=== PATIENT | male | born 1945 | race Caucasian/White ===

== ENCOUNTER 2016-06-18 16:33 | Inpatient (IN) | payer MEDICARE, BC ==
[~2016-06-18] VITALS: Ht 170.2 cm; Wt 83.5 kg
[~2016-06-18 16:33] MED LIST: FLUT1DIS29 IH; FURO-145 PO; HYDR-548 PO; MORP15TA71 PO; POTA20TA74 PO; RIVA10TA PO; ROFL500T PO; TIOT18CA3 IH
--- NOTE | 2016-06-18 16:55 | NUR ---
AT BEDSIDE FOR EVAL
[2016-06-18] MEDS ORDERED: BUSP30TA2 PO (17:02)
[2016-06-18] MEDS ORDERED: IPRA0.2S9 IH (17:02)
[2016-06-18] MEDS ORDERED: ALBU1.257 IH (17:02)
[2016-06-18] MEDS ORDERED: OXYC-164 PO (17:02)
[2016-06-18] MEDS ORDERED: LORA2TAB PO (17:02)
[2016-06-18] MEDS ORDERED: ASPI-991 PO (17:02)
[2016-06-18] MEDS ORDERED: MELA5TAB PO (17:02)
[2016-06-18] MEDS ORDERED: QUET400T PO (17:02)
[2016-06-18] MEDS ORDERED: TRAZ-144 PO (17:02)
[2016-06-18] MEDS ORDERED: OMEG500C PO (17:02)
[2016-06-18] MEDS ORDERED: ATOR40TA PO (17:02)
[2016-06-18] MEDS ORDERED: DILT120C2 PO (17:02)
--- NOTE | 2016-06-18 17:04 | NUR ---
BLOOD DRAW AT BEDSIDE COLLECTED BLOOD SAMPLE.
[2016-06-18] MEDS ORDERED: predniSONE 20 MG TABLET ONE (17:27)
[2016-06-18 17:28] LABS: CALCIUM, SERUM 8.8 mg/dL (8.5-10.1); CARBON DIOXIDE 38 mmol/L (21-32); CHLORIDE 104 mmol/L (98-107); CREATININE 0.7 mg/dL (0.6-1.3); GLUCOSE 128 mg/dL (74-106); POTASSIUM 4.2 mmol/L (3.5-5.1); SODIUM SERUM 141 mmol/L (136-145); UREA NITROGEN, BLOOD 6 mg/dL (7-18)
[2016-06-18] MEDS ORDERED: ALBUTEROL FS 2.5 MG/3 ML VIAL.NEB ONE (17:29)
[2016-06-18] MEDS ORDERED: IPRATROPIUM NEB FS 0.5 MG/2.5 ML AMPUL.NEB ONE (17:29)
[2016-06-18] MEDS ORDERED: predniSONE 20 MG TABLET PO ONE (17:30)
[2016-06-18] MEDS ORDERED: IPRATROPIUM NEB FS 0.5 MG/2.5 ML AMPUL.NEB NEB ONE (17:30)
[2016-06-18] MEDS ORDERED: ALBUTEROL FS 2.5 MG/3 ML VIAL.NEB NEB ONE (17:30)
--- NOTE | 2016-06-18 17:32 | NUR ---
RT AT BEDSIDE FOR BREATHING TREATMENT
[2016-06-18 17:33] LABS: ACETAMINOPHEN 3 ug/ml (10-30); ALANINE AMINOTRANSFERASE 12 U/L (12-78); ALCOHOL, BLOOD < 3 mg/dL (0-0); ALKALINE PHOSPHATASE 72 U/L (46-116); ASPARTATE AMINOTRANSFERASE 14 U/L (15-37); BILIRUBIN,DIRECT 0.1 mg/dL (0.0-0.2); BILIRUBIN,TOTAL 0.4 mg/dL (0.2-1.0); TOTAL PROTEIN, SERUM 6.4 g/dL (6.4-8.2)
[2016-06-18 17:34] LABS: SALICYLATE 2.7 mg/dL (2.8-20.0)
--- NOTE | 2016-06-18 17:50 | NUR ---
CALLED [facility] FOR PSYCH EVAL,ETA 1 HOUR
[2016-06-18 17:57] LABS: BASOPHILS % (AUTO) 0.4 % (0.0-2.0); EOSINOPHILS # (AUTO) 0.1 /CMM (0.0-0.7); EOSINOPHILS % (AUTO) 0.9 % (0.0-6.0); HEMATOCRIT 43 % (39-51); HEMOGLOBIN 13.8 g/dL (13.5-17.5); LYMPHOCYTES # (AUTO) 2.8 /CMM (0.8-4.8); LYMPHOCYTES % (AUTO) 34.3 % (20.0-44.0); MEAN CORPUSCULAR HEMOGLOBIN 32 PG (26.0-33.0); MEAN CORPUSCULAR HGB CONC 32 g/dl (31.0-36.0); MEAN CORPUSCULAR VOLUME 98 fL (80-96); MONOCYTES # (AUTO) 0.6 /CMM (0.1-1.30); MONOCYTES % (AUTO) 7.7 % (2.0-12.0); NEUTROPHILS # (AUTO) 4.6 /CMM (1.8-8.9); NEUTROPHILS % (AUTO) 56.7 % (43.0-81.0); PLATELET COUNT (AUTO) 206 /CMM (150-450); RED BLOOD CELL COUNT(AUTO) 4.33 MIL/uL (4.5-6.0); WHITE BLOOD COUNT (AUTO) 8.1 K/uL (4.3-11.0)
[2016-06-18 17:59] LABS: APPEARANCE,URINE CLEAR (CLEAR); BILIRUBIN,URINE NEGATIVE (NEGATIVE); BLOOD, URINE NEGATIVE Ery/uL (NEGATIVE); COLOR,URINE YELLOW (YELLOW); KETONES,URINE NEGATIVE (NEGATIVE); LEUKOCYTE ESTERASE ,URINE NEGATIVE (NEGATIVE); NITRITE, URINE NEGATIVE (NEGATIVE); PROTEIN,URINE NEGATIVE (NEGATIVE); UGLUCOSE NEGATIVE (NEGATIVE); UROBILINOGEN,URINE 0.2 EU/dL (0.2)
[2016-06-18 18:15] LABS: CANNABINOID, URINE NEGATIVE (NEGATIVE); PHENCYCLIDINE SCREEN,URINE NEGATIVE (NEGATIVE)
[2016-06-18] MEDS ORDERED: BUPR150T10 PO (18:40)
--- NOTE | 2016-06-18 19:08 | NUR ---
CALLED REG TO SEE WHERE SHE IS AT, SAID SHE IS STUCK IN TRAFFIC AND SHE WILL BE HERE SOON
--- NOTE | 2016-06-18 19:08 | NUR ---
RECEIVED REPORT FROM SANDY OLMSTEAD FOR CONTINUE OF CARE.
--- NOTE | 2016-06-18 19:40 | NUR ---
CALLED NURSING SUP. FOR GPS BED, IT WILL BE 211-A
--- NOTE | 2016-06-18 19:48 | NUR ---
PT PLACED ON 5150 HOLD PER REG.
--- NOTE | 2016-06-18 20:17 | NUR ---
REPORT GIVEN TO SANDY ALEJANDRE FOR [facility].
--- NOTE | 2016-06-18 20:38 | NUR ---
PT TRASNFERED VIA WC TO GPS
[2016-06-18 21:00] VITALS: BP 141/80
--- NOTE | 2016-06-18 21:00 | NUR ---
GPS ADMISSION NOTE, RECEIVED PATIENT FROM [facility]. PATIENT ARRIVED ON THIS UNIT A VIA STRETCHER 2 EMT ESCORTS. PATIENT ADMITTED ON A 5150 HOLD FOR DTS. PER HOLD PATIENT IS ALERT AND ORIENTED X 3 AND STATES THAT HE IS HAVING SUICIDAL IDEATIONS WITH A PLAN OF SELF HARM. PATIENT IS ANXIOUS, HAS DIFFICULTY SLEEPING, UNABLE TO CONTACT FOR SAFETY, AND PATIENT DOES NOT FEEL SAFE. PATIENT THE 5150 WAS REVIEWED AND THE DOCUMENTATION IN THE 5150 HOLD APPEARS TO REFLECT THE PRESENTATION OF THE PATIENT. UPON FACE TO FACE ASSESSMENT PATIENT IS CURRENTLY IN GERIATRIC CHAIR AWAKE, HAS A COMPLAINT OF LEFT ELBOW PAIN AT 3 OUT OF 10 ON THE PAIN SCALE. PATIENT IS BEING TREATED WITH ORAL PAIN MEDICATION FOR THIS PAIN. PATIENT IS DISPLAYING NO S/S OF APPARENT DISTRESS. PATIENT BREATHING IS UNLABORED WITH EQUAL RISE AND FALL OF THE CHEST. PATIENT IS ALERT AND ORIENTATED X 3 ON ROOM AIR. PATIENT HAS NO NEEDS AT THIS TIME. PATIENT IS NOTED TO BEING ANXIOUS, DISHEVELED, DISORGANIZED, UNCOOPERATIVE, COMBATIVE, WANTS TO LEAVE THE UNIT, AND NEEDS REDIRECTION. PATIENT DENIES SUICIDE IDEATIONS AND HOMICIDAL IDEATIONS AT THIS TIME. PATIENT IS UNDER THE PSYCHIATRIC CARE OF DR MA AND THE MEDICAL CARE OF DR YULI SAVAGE. PATIENT BELONGINGS WERE INVENTORIED AND CHECKED FOR CONTRABAND. ALL CONTRABAND REMOVED AND STORED IN PATIENT HALLWAY LOCKER. PATIENT ADVANCED DIRECTIVES PREFERENCE, IMMUNIZATIONS QUESTIONER, NECESSARY PAPERWORK, AND SKIN ASSESSMENT COMPLETED. PATIENT ORIENTATED TO ROOM, FLOOR, AND STAFF WITH ALL QUESTIONS ANSWERED. PATIENT EDUCATED ON THE USE OF THE CALL VICTOR. PATIENT BED SIDE RAILS ARE UP X 2 FOR SAFETY. PATIENT BED IS LOCKED, LOW AND I WILL CONTINUE TO MONITOR THIS PATIENT Q 15 MIN WITH THE HELP OF STAFF TO MAINTAIN SAFETY.
[2016-06-18 21:20] VITALS: BP 141/80
[2016-06-18] MEDS ORDERED: MAGNESIUM HYDROXIDE 30 ML UDC PO PRN (21:30)
[2016-06-18] MEDS ORDERED: ACETAMINOPHEN 325 MG TABLET PO PRN (21:30)
[2016-06-18] MEDS ORDERED: MAG HYDROX/AL HYDROX/SIMETH 30 ML UDC PO PRN (21:30)
--- NOTE | 2016-06-18 21:30 | NUR ---
GPS RN NOTE, PATIENT IN ACTIVITY ROOM IN GERATIC CHAIR. DARIN SEN CALLED OUT FOR HELP. I RAN TO THE ACTIVITY ROOM AND WITNESSED THE PATIENT WITH A CONCEALED PACKAGE LINER STARTING THE CHUCKS PADS ON FIRE THAT HE SITTING ON WHILE IN THE GERIATRIC CHAIR. BOTH FRANCY AND I RAN TO THE PATIENT AND PUT OUT THE FLAMES WITH WATER. PATIENT THEN REFUSED TO GIVE US THE PACKAGE LINER. PATIENT HELD THE PACKAGE LINER IN LEFT HAND AND NEEDED ASSISTANCE TO TAKE IT OUT OF HIS HAND. PATIENT AGGRESSIVELY FOUGHT TO NOT HAVE THE PACKAGE LINER TAKEN AWAY FROM HIM AND MANAGED TO INJURY HIS ALREADY SWOLLEN ELBOW. PACKAGE LINER TAKEN AWAY FROM FROM PATIENT. BUT NOW HAS A COMPLAINT OF 6 OUT 10 PAIN ON HIS LEFT ELBOW. PATIENT RESEARCHED ALL OVER HIS BODY FOR CONTRABAND. WILL CALL [facility] TO GET A X-RAY OF LEFT ELBOW. MAT TESTER NURSE AND FAMILY NOTIFIED OF THE OCCURRENCE. WILL CONTINUE TO MONITOR THIS PATIENT.
--- NOTE | 2016-06-18 22:15 | NUR ---
GPS RN NOTE, PATIENT HAS COMPLAINT OF 6 OUT 10 PAIN ON HIS LEFT ELBOW. PATIENT'S LEFT ELBOW HAS POSITIVE EDEMA + 2. PAGED [facility] AND INFORMED DR BOB BALTAZAR OF MY FINDINGS. DR ROJAS ORDERED X-RAY OF LEFT ELBOW COMPLETE AND X-RAY OF LEFT FOREARM COMPLETE STAT. ALL ORDERS NOTED AND CARRIED OUT WILL CONTINUE TO MONITOR THIS PATIENT.
[2016-06-18] MEDS ORDERED: ALBUTEROL HALF STRENGTH 1.25 MG/3 ML VIAL.NEB IH PRN (22:30)
--- NOTE | 2016-06-18 23:35 | NUR ---
GPS RN NOTE, PATIENT X-RAY RESULTS ARE FOLLOWS MILDLY DISTRACTED FRACTURE OF THE OLECRANON WITH OVERLYING SOFT TISSUE SWELLING. PAGED [facility] AND INFORMED DR BOB BALTAZAR OF MY FINDINGS. DR ROJAS ORDERED NORCO 5-325 MG 1 TAB PO Q4HR PRN, AN ORTHO CONSULT, AND SAID HE WOULD ORDER A SLING FROM [facility] IN THE AM. ALL ORDERS NOTED AND CARRIED OUT WILL CONTINUE TO MONITOR THIS PATIENT.
[2016-06-19] MEDS ORDERED: HYDROCODONE/APAP 5/325MG 1 EACH TABLET ONE (00:20)
[2016-06-19] MEDS: HYDROCODONE/APAP 5/325MG 1 EACH TABLET PO PRN ×2 (00:29→20:34)
--- NOTE | 2016-06-19 00:29 | NUR ---
GPS RN NOTE, PATIENT HAS A COMPLAINT OF LEFT ELBOW PAIN AT 6 OUT 10 ON THE PAIN SCALE AND WOULD LIKE MEDICATION AT THIS TIME. PATIENT VITAL SIGNS ARE STABLE GAVE NORCO 5-325 1 TAB PO Q4HR PRN ORDERED. WILL REASSESS PAIN AND I WILL CONTINUE TO MONITOR THIS PATIENT.
[2016-06-19] MEDS: TEMAZEPAM 7.5 MG CAPSULE PO PRN ×2 (01:53→20:37)
--- NOTE | 2016-06-19 01:53 | NUR ---
GPS RN NOTE, PATIENT HAS A COMPLAINT OF NOT BEING ABLE TO SLEEP AND WOULD LIKE A SLEEPING AID AT THIS TIME. PATIENT VITAL SIGNS ARE STABLE. GAVE RESTORIL 7.5MG PO HS ORDERED. WILL REASSESS FOR INSOMNIA AND I WILL CONTINUE TO MONITOR THIS PATIENT.
--- NOTE | 2016-06-19 06:37 | NUR ---
GPS RN NOTE, SPOKE WITH CASPER HANNA PATIENT NEXT OF KIN HOW STATED THAT, " CHRISTIANE HAS FALLEN MULTIPLE TIMES IN THE PAST DUE TO MIXING OF ETOH AND MEDICATION". CASPER HANNA WAS NOT SURPRISED PATIENT THAT THE PATIENT HAS FRACTURE ON LEFT ELBOW AND SKIN TEAR ON HIS RIGHT FOREARM. MADE PATIENT NEXT OF KIN AWARE OF OUR VISITING HOURS AND RULES OF THE FLOOR. WILL ENDORSE TO AM SHIFT NURSE AND I WILL CONTINUE TO MONITOR THIS PATIENT.
--- NOTE | 2016-06-19 07:30 | NUR ---
RN-CO: Obtained a 1:[address] Nielsen. Patient is AWOL risk, needs constant redirection and keep on trying to open doors. gave the order noted.
[2016-06-19] MEDS ORDERED: ALBUTEROL FS 2.5 MG/3 ML VIAL.NEB NEB PRN (07:35)
[2016-06-19] MEDS: LORAZEPAM 0.5 MG TABLET PO PRN ×3 (07:54→22:14)
[2016-06-19 08:00] VITALS: BP 137/84
[2016-06-19] MEDS: IPRATROPIUM NEB FS 0.5 MG/2.5 ML AMPUL.NEB IH SCH ×3 (08:16→16:46)
[2016-06-19] MEDS: DILTIAZEM HCL CD 120 MG PO SCH (09:00)
[2016-06-19] MEDS ORDERED: TIOTROPIUM BROMIDE 6 CAP/BOX CAP.W.DEV IH SCH (09:00)
[2016-06-19] MEDS ORDERED: Medication Not On Formulary EA (Roflumilast (Daliresp) 500 MCG) PO SCH (09:00)
[2016-06-19] MEDS: ASPIRIN EC 81 MG TABLET.DR PO SCH (09:00)
--- NOTE | 2016-06-19 10:00 | NUR ---
gps athletic training internship: notes pt requesting ativan and insisting to have it randell, pt aware he got one this morning (2 hours ago), but doesn't remember taking it. sitter remains with him. pt behavior escalating and with threatening remarks. cn aware. paged dr. gould. 1:1 intervention provided prn. will continue to monitor.
--- NOTE | 2016-06-19 10:10 | NUR ---
RN-CO: Patient is constantly in the nursing station, talking loud and in a threatening manner. Non redirectable, insisting he needs Ativan IM CHANG. Patient is belligerent and became impatient. Dr Nielsen was paged.
--- NOTE | 2016-06-19 10:12 | NUR ---
WOUND CARE CONSULT: PATIENT SEEN AND LIMITED SKIN ASSESSMENT DONE. PATIENT REFUSED THE ASSESSMENT OF THE BACK, SACRUM, LEGS AND FEET. PATIENT IS ALERT, CONTINENT, AMBULATORY. ACCORDING TO NURSING STAFF, PATIENT IS UNPREDICTABLE, BECOMES ANGRY AND COMBATIVE. SEE TODAY'S SKIN ASSESSMENT IN PCS ALONG WITH RECOMMENDATIONS DISCUSSED WITH NURSING STAFF. MD IN AGREEMENT WITH PLAN OF CARE. Addendum: 06/19/16 at 1016 by BEBETO DIXON WNDNU Amended: Links added.
[2016-06-19] MEDS ORDERED: LORAZEPAM INJ 2 MG/ML VIAL IM STA (10:14)
[2016-06-19] MEDS ORDERED: OLANZAPINE 10 MG VIAL IM STA (10:14)
--- NOTE | 2016-06-19 10:17 | NUR ---
RN-CO: DR MA CALLED AND ORDERED ZYPREXA 5 MG IM AND ATIVAN 1 MG IM STAT NOTED AND CARRIED OUT.
[2016-06-19] MEDS ORDERED: Z GUARD REMEDY 2 OZ OINT TP PRN (10:30)
--- NOTE | 2016-06-19 10:35 | NUR ---
gps stereotyper helper: ortho f/u seen by remedios and applied splint to left elbow/arm, ann. well. received verbal order to get consent of left olecranon open reduction internal fixation, but pt refusing to give consent. pt remains anxious, hyperverbal, and demanding to go to [place] for his surgery. pt is still on hold. pt not capable of signing due to cognitive impairment. will notify son. will continue to monitor.
--- NOTE | 2016-06-19 10:55 | NUR ---
gps plasma center technician: notes fantasma (son) notified and made aware re: surgery tonight or on wednesday re: left elbow fx and son initially consented over the phone and spoke to another nurse (cn) to verify consents on procedure and anesthesia, but changed his mind and he won't consent after talking to his father, pt still refusing surgery. per son he will fly tonight here from [place]. cn aware.
--- NOTE | 2016-06-19 11:00 | NUR ---
RN-CO: PATIENT AND SON MARY CARTAGENA REFUSED TO SIGN THE CONSENT FOR LEFT ELBOW SURGERY.
--- NOTE | 2016-06-19 11:19 | NUR ---
RN-CO: NOTIFIED BHUMIKA BUENROSTRO REGARDING PATIENT AND SON'S REFUSAL FOR SURGERY.
--- NOTE | 2016-06-19 12:10 | NUR ---
GPS ASPHALT RAKER: MD VISIT SEEN AND EXAMINED BY DR. SAVAGE WITH VERBAL ORDER OKAY FOR OXYGEN AT 2L/MIN VIA N/C AND TITRATE PRN TO MEET 92% SATURATION. ORDER CARRIED OUT AND ACKNOWLEDGED. MALATHI Dover MADE AWARE.
--- NOTE | 2016-06-19 12:23 | NUR ---
Initial discharge plan: Pt. resides at home alone [address] [facility] [address] and wants to return. Pt. states he is working on getting a caregiver to help him and it is almost set up. SW will follow up with MD and will help form safe and proper discharge.
[2016-06-19] MEDS: NEOMY SULF/BACITRAC ZN/POLY 15 GM TUBE TP SCH (13:47)
[2016-06-19 14:59] LABS: BASOPHILS % (AUTO) 0.3 % (0.0-2.0); EOSINOPHILS % (AUTO) 0.2 % (0.0-6.0); HEMATOCRIT 40 % (39-51); HEMOGLOBIN 12.9 g/dL (13.5-17.5); MEAN CORPUSCULAR HEMOGLOBIN 31 PG (26.0-33.0); MEAN CORPUSCULAR HGB CONC 33 g/dl (31.0-36.0); MEAN CORPUSCULAR VOLUME 96 fL (80-96); MONOCYTES % (AUTO) 8.5 % (2.0-12.0); PLATELET COUNT (AUTO) 220 /CMM (150-450); RDW COEFFICIENT OF VARIATION 16.9 (11.5-15.0); RED BLOOD CELL COUNT(AUTO) 4.12 MIL/uL (4.5-6.0); WHITE BLOOD COUNT (AUTO) 12.1 K/uL (4.3-11.0)
--- NOTE | 2016-06-19 15:00 | NUR ---
gps barrel assembler: psych f/u seen by dr. gould at this time. dr. gould made aware re: pt refusing left elbow surgery and also son is also refusing and will fly out tonight from [place]. pt continue on 1:1 sitter. will continue to monitor.
[2016-06-19 15:14] LABS: ALBUMIN 2.9 g/dL (3.4-5.0); BILIRUBIN,TOTAL 0.3 mg/dL (0.2-1.0); CALCIUM, SERUM 8.9 mg/dL (8.5-10.1); CREATININE 0.8 mg/dL (0.6-1.3); POTASSIUM 4.1 mmol/L (3.5-5.1); TOTAL PROTEIN, SERUM 6.1 g/dL (6.4-8.2)
[2016-06-19] MEDS: oxyCODONE/APAP (5/325 MG) 1 UDTAB TABLET PO PRN (15:31)
--- NOTE | 2016-06-19 15:31 | NUR ---
gps shoe polisher: notes c/o 10/29 left elbow pain, medicated with percocet 2 tabs po as ordered. sitter remains at bedside. will continue to monitor.
[2016-06-19 16:02] VITALS: BP 161/88
--- NOTE | 2016-06-19 16:31 | NUR ---
gps dean of chapel: notes pt resting comfortable in bed. left elbow splint remains intact. sitter remains at bedside. will continue to monitor.
[2016-06-19] MEDS: busPIRone 5 MG TABLET PO SCH ×2 (17:00→18:44)
[2016-06-19] MEDS: RIVAROXABAN 10 MG TABLET PO SCH ×2 (17:00→20:36)
--- NOTE | 2016-06-19 17:00 | NUR ---
gps seismograph shooter: notes pt refused pm meds, offered 3x and meds discarded to pharmaceutical waste only dispenser. pt remains hyperverbal, anxious, but refusing meds despite educated on new meds, stated, "i only take my own meds, i don't want these new meds." will continue to monitor.
--- NOTE | 2016-06-19 18:44 | NUR ---
GPS ASSOCIATE PROFESSOR OF GEOGRAPHY: NOTES PT CHANGED HIS MIND AND WANTS THE BUSPAR MEDS. PULLED OUT BUSPAR 30MG PO AND GIVEN TO PT ORDERED. SITTER REMAINS AT BEDSIDE. WILL CONTINUE TO MONITOR.
[2016-06-19] MEDS: ATORVASTATIN 40 MG TABLET PO SCH (20:33)
--- NOTE | 2016-06-19 20:33 | NUR ---
GPS RN NOTE PATIENT REQUEST ALL ROUTINE NIGHT MEDICATIONS, PAIN PILL AND SLEEPING PILL. PATIENT KEPT DEMANDING MEDICATIONS, AND COMING TO NURSES STATIONS YELLING AND SHOUTING TO BE GIVEN HIS MEDICATIONS. FORGETFUL KEPT REPEATING HIMSELF AND ASKING FOR MORE MEDICATIONS AFTER BEING GIVEN HIS MEDS.
[2016-06-19] MEDS: QUETIAPINE FUMARATE 100 MG TABLET PO SCH (20:35)
[2016-06-19] MEDS: TRAZODONE 50 MG TABLET PO SCH (20:36)
[2016-06-19 20:47] VITALS: BP 130/80
[2016-06-19] MEDS ORDERED: Medication Not On Formulary EA (Omega-3 Fatty Acids (Fish Oil) 1,000 MG) PO SCH (22:00)
[2016-06-19] MEDS ORDERED: Medication Not On Formulary EA (Melatonin 10 MG) PO SCH (22:00)
[2016-06-19] MEDS ORDERED: QUETIAPINE FUMARATE 100 MG TABLET PO SCH (22:00)
[2016-06-20] MEDS: HYDROCODONE/APAP 5/325MG 1 EACH TABLET PO PRN ×4 (04:04→17:45)
--- NOTE | 2016-06-20 05:12 | NUR ---
GPS RN NOTES PATIENT COMPLAINING OF ACHING PAIN IN LEFT ARM 09/28. ADMINISTERED NORCO 5/325 1 TAB PO GIVEN PRN ORDERED. WILL CONTINUE TO MONITOR.
[2016-06-20 07:54] VITALS: BP 145/97
[2016-06-20 08:20] LABS: CHOLESTEROL 124 mg/dL (<200); HDL CHOLESTEROL 62 mg/dL (40-60); LDL 49 mg/dL (0-99); TRIGLYCERIDES 43 mg/dL (30-150)
[2016-06-20] MEDS: buPROPion SR 150 MG TABLET.ER PO SCH (08:39)
[2016-06-20] MEDS: busPIRone 5 MG TABLET PO SCH ×2 (08:39→17:44)
--- NOTE | 2016-06-20 08:39 | NUR ---
ADMINISTERED NARCO 5/325 MG KAMI FOR LEFT ARM PAIN 11/29, V/S TAKEN BP-149/97, P-68, CONTINUED MONITORING. 1:1 SITTER NEXT TO THE BED FOR SAFETY.
[2016-06-20] MEDS: DILTIAZEM HCL CD 120 MG PO SCH (08:40)
[2016-06-20] MEDS: ASPIRIN EC 81 MG TABLET.DR PO SCH (08:40)
[2016-06-20] MEDS: NEOMY SULF/BACITRAC ZN/POLY 15 GM TUBE TP SCH (08:41)
[2016-06-20] MEDS: IPRATROPIUM NEB FS 0.5 MG/2.5 ML AMPUL.NEB IH SCH ×3 (08:41→13:26)
[2016-06-20] MEDS: oxyCODONE/APAP (5/325 MG) 1 UDTAB TABLET PO PRN ×2 (10:46→22:02)
--- NOTE | 2016-06-20 10:46 | NUR ---
ADMINISTERED PERCOCET 5/325 MG TWO TABS PRESCRIBED FOR LEFT ARM PAIN 11/29, V/S TAKEN BP- 136/65, P-76, CONTINUED MONITORING, ENCOURAGED TO INCREASE FLUID INTAKE.
--- NOTE | 2016-06-20 13:15 | NUR ---
ADMINISTERED NARCO 5/325 MG PO PRN FOR LEFT ARM PAIN 11/29, V/S STABLE BP-135/73, P-69, CONTINUED MONITORING.
[2016-06-20] MEDS: LORAZEPAM 0.5 MG TABLET PO PRN (15:15)
--- NOTE | 2016-06-20 15:15 | NUR ---
ADMINISTERED ATIVAN 0.5 MG PO PRN FOR ANXIETY PRESCRIBED V/S TAKE, BP -128/75, P-66, CONTINUED MONITORING.
[2016-06-20 16:03] VITALS: BP 128/75
[2016-06-20] MEDS: RIVAROXABAN 10 MG TABLET PO SCH (17:49)
[2016-06-20] MEDS ORDERED: LORAZEPAM 1 MG TABLET ONE (19:46)
[2016-06-20] MEDS: LORAZEPAM 1 MG TABLET PO PRN (19:51)
[2016-06-20] MEDS: TRAZODONE 50 MG TABLET PO SCH (19:56)
--- NOTE | 2016-06-20 19:56 | NUR ---
GPS/RN NOTE: PATIENT REQUESTING AGAIN FOR HIS ROUTINE NIGHT MEDICATIONS. WITH ATIVAN 1 MG TAB PRN FOR AGITATION. ALL REQUESTED MEDICATIONS DUE AT 10 PM AND GIVEN PER PATIENT'S REQUEST. VITALS BP 130/61, HR61, 98.0, 975 SAT. ON 2L VIA OXYGEN CONCENTRATOR. NO APPARENT DISTRESS NOTED. 1:12 SITTER AT THE BEDSIDE.
[2016-06-20 20:00] VITALS: BP 136/81
[2016-06-20] MEDS: QUETIAPINE FUMARATE 100 MG TABLET PO SCH (20:02)
[2016-06-20] MEDS: ATORVASTATIN 40 MG TABLET PO SCH (20:02)
[2016-06-20] MEDS: TEMAZEPAM 7.5 MG CAPSULE PO PRN (22:03)
--- NOTE | 2016-06-20 22:06 | NUR ---
GPS/RN NOTE: PATIENT C/O PAIN LEFT ARM 8/10 ON PAIN SCALE, PERCOCET 5/325 MG TAB 2 PO GIVEN. UNABLE TO SLEEP, TEMAZEPAM 7.5 MG CAP 1 PO GIVEN.
[2016-06-21] MEDS: HYDROCODONE/APAP 5/325MG 1 EACH TABLET PO PRN ×4 (03:48→20:06)
--- NOTE | 2016-06-21 03:48 | NUR ---
GPS/RN NOTE: AWAKE, C/O PAIN LEFT ARM, 6/10 ON PAIN SCALE, NORCO TAB 5/325 MG TAB 1 PO GIVEN.
--- NOTE | 2016-06-21 07:41 | NUR ---
GPS/RN NOTE: PATIENT AWAKE, REQUESTING FOR HIS NORCO, HAS PAIN ON HIS LEFT ARM, 6/10 ON PAIN SCALE, NORCO 5/325 MG 1 PO GIVEN.
[2016-06-21 08:00] VITALS: BP 109/70
[2016-06-21] MEDS: DILTIAZEM HCL CD 120 MG PO SCH (08:58)
[2016-06-21] MEDS: buPROPion SR 150 MG TABLET.ER PO SCH (08:58)
[2016-06-21] MEDS: ASPIRIN EC 81 MG TABLET.DR PO SCH (08:58)
[2016-06-21] MEDS: busPIRone 5 MG TABLET PO SCH ×2 (08:59→16:30)
[2016-06-21] MEDS: NEOMY SULF/BACITRAC ZN/POLY 15 GM TUBE TP SCH (08:59)
[2016-06-21] MEDS: IPRATROPIUM NEB FS 0.5 MG/2.5 ML AMPUL.NEB IH SCH ×3 (09:00→17:00)
[2016-06-21] MEDS: LORAZEPAM 1 MG TABLET PO PRN ×3 (09:02→19:29)
--- NOTE | 2016-06-21 09:02 | NUR ---
ADMINISTERED ATIVAN 1 MG PO PRN FOR ANXIETY, IRRITABLE, , BP-109/70, P-80, CONTINUED MONITORING.
[2016-06-21] MEDS: oxyCODONE/APAP (5/325 MG) 1 UDTAB TABLET PO PRN (11:22)
--- NOTE | 2016-06-21 11:22 | NUR ---
ADMINISTERED PERCOCET 5/325 MG PO PRN FOR LEFT ARM PAIN 11/29, V/S TAKEN, BP- 110/65, P-78, CONTINUED MONITORING.
--- NOTE | 2016-06-21 14:26 | NUR ---
ADMINISTERED ATIVAN 1 MG PO PRN FOR ANXIETY , IRRITABLE, BP-112/67, P-78, CONTINUED MONITORING.
[2016-06-21 16:21] VITALS: BP 112/67
[2016-06-21] MEDS: RIVAROXABAN 10 MG TABLET PO SCH (16:32)
--- NOTE | 2016-06-21 19:36 | NUR ---
GPS/RN NOTE: PATIENT CAME UP TO STATION, STATED," PLEASE GIVE ME AN ANXIETY PILL." LORAZEPAM 1 MG TAB 1 PO GIVEN.
[2016-06-21 19:47] VITALS: BP 127/68
--- NOTE | 2016-06-21 20:07 | NUR ---
GPS/RN NOTE: NORCO TAB 5/325 MG 1 PO GIVEN, HIS LEFT ELBOW IS HURTING 6/10 ON PAIN SCALE. MED IS PER HIS REQUEST.
[2016-06-21] MEDS: QUETIAPINE FUMARATE 100 MG TABLET PO SCH (20:12)
[2016-06-21] MEDS: TRAZODONE 50 MG TABLET PO SCH (20:12)
[2016-06-21] MEDS: ATORVASTATIN 40 MG TABLET PO SCH (20:12)
--- NOTE | 2016-06-21 20:12 | NUR ---
GPS/RN NOTE: PATIENT REQUESTED FOR HIS ROUTINE NIGHT MEDS, LIPITOR 40 MG, SEROQUEL 400 MG, AND DESYREL 50 MG, ALL MEDS GIVEN PER HIS REQUEST.
[2016-06-22] MEDS: oxyCODONE/APAP (5/325 MG) 1 UDTAB TABLET PO PRN (00:19)
[2016-06-22] MEDS: LORAZEPAM 1 MG TABLET PO PRN (06:36)
--- NOTE | 2016-06-22 06:37 | NUR ---
GPS/RN NOTE: PATIENT APPEARS VERY ANXIOUS ASKING WHEN HIS MD COMES IN, AND EAGER TO LEAVE HOME. ATIVAN 1 MG TAB 1 O GIVEN.
[2016-06-22 08:00] VITALS: BP 123/85
[2016-06-22] MEDS: ASPIRIN EC 81 MG TABLET.DR PO SCH (08:18)
[2016-06-22] MEDS: buPROPion SR 150 MG TABLET.ER PO SCH (08:18)
[2016-06-22] MEDS: busPIRone 5 MG TABLET PO SCH (08:18)
[2016-06-22 08:19] VITALS: BP 123/79
[2016-06-22] MEDS: DILTIAZEM HCL CD 120 MG PO SCH (08:19)
[2016-06-22] MEDS: HYDROCODONE/APAP 5/325MG 1 EACH TABLET PO PRN (08:19)
--- NOTE | 2016-06-22 08:19 | NUR ---
ADMINISTERED NARCO 5/325 MG PO PRN FOR LEFT ARM PAIN 10/29, V/S TAKE BP-123/85, P-80, CONTINUED MONITORING. ENCOURAGED TO INCREASE FLUID INTAKE.
[2016-06-22] MEDS: NEOMY SULF/BACITRAC ZN/POLY 15 GM TUBE TP SCH (08:20)
[2016-06-22] MEDS: IPRATROPIUM NEB FS 0.5 MG/2.5 ML AMPUL.NEB IH SCH (09:00)
--- NOTE | 2016-06-22 13:30 | NUR ---
DISCHARGE NOTES/ PATIENT D/C AT THIS TIME GOING HOME. PT A/O X3, MED COMPLIANT, V/S STABLE, MEDICALLY STABLE TO D/C HOME. PT MED COMPLIANT, V/S STABLE, NO C/O PAIN. PATIENT DENIED SI/HI/AVH AT THIS TIME. MED RECONCILIATION , AND DISCHARGE ORDER REVIEWED AND EXPLAINED TO PATIENT AND SON. PATIENT VERBALIZED UNDERSTANDING. BELONGING RETURNED BACK TO THE PATIENT. PATIENT GUIDANCE ADVISER BY [employer].
--- NOTE | 2016-06-22 15:05 | NUR ---
Discharge note: discharged back home [address] [facility] [address] via [employer]. [facility] [phone] is referred. SonGiuseppe was at bedside and agreed with discharge plan and insisted on taking him home today. Pt. was calm and cooperative, denied suicidal/homicidal ideations. Pt. was provided with discharge instructions and discharge paperwork has been signed.
== END 2016-06-22 13:15 | disposition home health service (06) | DRG 885 ==
LOC: ER 16:34 → GPSOV2 20:22 → GPS 20:58
PROVIDERS: ADMIT Psychiatry & Neurology Psychiatry
DX: F33.2 Major depressive disorder, recurrent severe without psychotic features (principal); J96.10 Chronic respiratory failure, unspecified whether with hypoxia or hypercapnia; R45.851 Suicidal ideations; E78.5 Hyperlipidemia, unspecified; F17.210 Nicotine dependence, cigarettes, uncomplicated; H91.90 Unspecified hearing loss, unspecified ear; I10 Essential (primary) hypertension; I25.10 Atherosclerotic heart disease of native coronary artery without angina pectoris; I27.2 Other secondary pulmonary hypertension; J44.9 Chronic obstructive pulmonary disease, unspecified; K21.9 Gastro-esophageal reflux disease without esophagitis; N40.0 Benign prostatic hyperplasia without lower urinary tract symptoms; Z86.73 Personal history of transient ischemic attack (TIA), and cerebral infarction without residual deficits; Z86.711 Personal history of pulmonary embolism; Z99.81 Dependence on supplemental oxygen; M19.90 Unspecified osteoarthritis, unspecified site; F41.9 Anxiety disorder, unspecified; F03.90 Unspecified dementia, unspecified severity, without behavioral disturbance, psychotic disturbance, mood disturbance, and anxiety; S52.022A Displaced fracture of olecranon process without intraarticular extension of left ulna, initial encounter for closed fracture; X58.XXXA Exposure to other specified factors, initial encounter; Y93.9 Activity, unspecified; Y92.009 Unspecified place in unspecified non-institutional (private) residence as the place of occurrence of the external cause; Y99.9 Unspecified external cause status
CPT/HCPCS: 36415; 71010-TC; 73080-TC; 73090-TC; 80048-TC; 80053-TC; 80061-TC; 80076-TC; 80305; 81000-TC; 85025-TC; 87081-TC; A4606; A6402; G0480; G6039-TC; J2060; J3490; Z7610